=== PATIENT | female | born 2000 | race Caucasian/White ===

== ENCOUNTER 2024-04-20 07:46 | Inpatient (IN) ==
[2024-04-20] MEDS ORDERED: OXYTOCIN 30 UNITS/NSS 30 UNITS/500 ML BAG IV PRN (08:51)
[2024-04-20] MEDS ORDERED: LIDOCAINE 1% LOCAL 20 ML VIAL INFIL PRN (08:51)
[2024-04-20] MEDS: LACTATED RINGER'S 1,000 ML IV PRN (09:45)
[2024-04-20 09:50] LABS: Hematocrit (blood only) 31.3 % (37.0-47.0); Mean Corpuscular Hemoglobin 27.7 pg (25.0-34.0); Mean Corpuscular Hgb Conc 31.9 g/dL (32.0-36.0); Mean Corpuscular Volume 86.7 fL (80.0-100.0); Mean Platelet Volume 9.9 fL (9.4-12.4); Platelet Count 269 K/uL (130-400); RDW Coefficient of Variation 14.1 % (11.5-14.5); RDW Standard Deviation 44.8 fL (36.4-46.3); Red Blood Count 3.61 M/uL (4.20-5.40); White Blood Count 6.19 K/ul (4.8-10.8)
[2024-04-20] MEDS: OXYTOCIN 30 UNITS/NSS 30 UNITS/500 ML BAG IV PRN (09:52)
--- NOTE | 2024-04-20 10:07 | History & Physical Report ---
Date of Service April 20, 2024 Assessment & Plan (1) Supervision of normal first : (2) Anemia: Plan 23 yo G1 at 39 4/7 wga presents for iol due to increased bmi VSS Fetus cat 1 Labor - 35 cc solano placed, will start pit GBS neg epidural PRN Admission and Anticipated Discharge Date Admission Date: April 20, 2024 History of Present Illness Chief Complaint: induction Primary Care Provider: SHAMIKA PCP 23 yo G1 at 39 4/7 wga presents for iol fdue to BMI. 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 denies hx stis Allergies Allergy/AdvReac Type Severity Reaction Status Date / Time NSAIDS (Non-Steroidal Allergy Severe Anaphylaxis Verified 04/19/24 13:20 Anti-Inflamma Home Medications Medication Instructions Recorded Confirmed Type 21-iron fu-folic acid PO 10/15/23 04/19/24 History [ Complete] ondansetron 4 mg disintegrating 4 mg PO Q8H PRN nausea and 10/20/23 04/19/24 Rx tablet vomiting #14 tabs breast pump #1 ea 03/23/24 04/19/24 Rx Patient History Medical History (Updated 04/20/24 @ 10:14 by Adore Hickman MD) History of chicken pox Surgical History No history of previous surgery Family History Denies family history of Ovarian cancer Breast cancer Colorectal cancer Social History Smoking Status: Never smoker Do You Dip or Chew Tobacco: No; Tobacco Cessation Education Requested by Patient: No Hx Alcohol Use: No Hx Substance Use: No Preferred Language: Macedonian Communication Ability: Effective Support Teacher Required: No Beliefs That Will Affect Care: None marital status: marital status details: Luciano Potter ([phone]) [phone] Current Living Situation: Family Current Living Situation Comment: Lives with , no pets current occupational status: unemployed Other Information That Helps Us Care for You: No Feels Safe at Home: Yes Safety Concerns: Feels Safe At This Time Assistive Devices: None Physical Exam Genitourinary: OB Exam Abdomen: + vertex (confirmed by bsus) and + estimated weight (6-7) Manual OB Exam: + cervical dilation 1 cm, + cervical effacement 50% and + station -2 OB Exam Monitor Tracing: + external FHT monitor used, + external uterine monitor used and + category I Results & Data Vital Signs (Past 12 Hours) Vital Signs Temp Pulse Resp BP 04/20/24 08:14 98.2 F 109 H 16 127/67 04/20/24 07:54 109 H 127/67 Laboratory Results 09/18/[address] and gc via vaginal rna probe, RPR NR same date, HIV neg same date 12/06/22 pap smear WNL Hep B Surface Ag NR Hep C NR Rubella imm A+ Diagnostic Findings 03/15 EFW 31%, ant plac w/ marginal insertion Coding Level of Care Code None Diagnoses Supervision of normal first Z34.00 Anemia D64.9 CPT Codes Misx Procedure Codes - 82555 Placement of cervical dilator: 70366 Placement of cervical dilator ([id number])
[2024-04-20] MEDS ORDERED: BUTORPHANOL TARTRATE 2 MG/ML VIAL IV PRN (11:18)
[2024-04-20] MEDS ORDERED: ePHEDrine sulfate 50 MG/ML AMP IV PRN (11:55)
[2024-04-20] MEDS ORDERED: NALOXONE HCL 1 MG in SODIUM CHLORIDE 0.9% 1,000 ML IV PRN (11:55)
[2024-04-20] MEDS ORDERED: ROPIVACAINE 0.5% PF 5 MG/ML 20 ML VIAL EPI PRN (11:55)
[2024-04-20] MEDS ORDERED: LIDOCAINE 2% MPF LOCAL 5 ML VIAL EPI PRN (11:55)
[2024-04-20] MEDS ORDERED: NALBUPHINE HCL 5 MG in SYRINGE 0 ML IV PRN (11:55)
[2024-04-20] MEDS ORDERED: diphenhydrAMINE 50 MG/ML VIAL IV PRN (11:55)
[2024-04-20] MEDS ORDERED: NALOXONE HCL 0.4 MG/1 ML VIAL/CARP IV PRN (11:55)
[2024-04-20] MEDS ORDERED: SODIUM CHLORIDE 0.9% PF INJ 10 ML VIAL EPI PRN (11:55)
--- NOTE | 2024-04-20 11:57 | Anesthesiology Consultation ---
Date of Service April 20, 2024 Assessment & Plan (1) Encounter for pre-operative examination: Chart Review Chart Review: Patient NOT seen in Pre Admission Testing and Acceptable Risk for Labor Epidural Consults Requested none History Height/Weight Height: 5 ft 7 in Weight: 121.563 kg Allergies Allergy/AdvReac Type Severity Reaction Status Date / Time NSAIDS (Non-Steroidal Allergy Severe Anaphylaxis Verified 04/19/24 13:20 Anti-Inflamma Medications Home Medications Medication Instructions Recorded Confirmed Last Taken 21-iron fu-folic acid PO 10/15/23 04/19/24 04/19/24 14:00 [ Complete] ondansetron 4 mg disintegrating 4 mg PO Q8H PRN nausea and 10/20/23 04/20/24 Unknown tablet vomiting #14 tabs breast pump #1 ea 03/23/24 04/19/24 Unknown Active Medications Generic Name Dose Route Start Last Admin Trade Name Freq PRN Reason Stop Dose Admin Oxytocin 30 units in 500 mls @ 6 mls/hr 04/20/24 08:51 04/20/24 10:50 Pitocin 30 Units/Nss IV 04/22/24 08:50 0.36 units/hr .Q24H PRN 6 mls/hr Labor Induction/Augmentation Titration Protocol 0.36 UNITS/HR Lactated Ringer's 1,000 mls @ 125 mls/hr 04/20/24 08:51 04/20/24 11:55 Lr IV 04/22/24 08:50 999 mls/hr .Q8H PRN Administration L&D Protocol Protocol Past Medical History Medical History (Updated 04/20/24 @ 11:57 by Arcadio Kirkpatrick MD) Encounter for pre-operative examination History of chicken pox Past Family History Family History Denies family history of Ovarian cancer Breast cancer Colorectal cancer Past Surgical History Surgical History No history of previous surgery Social History Smoking Status: Never smoker Do You Dip or Chew Tobacco: No Hx Alcohol Use: No Hx Substance Use: No substance use type: does not use Physical Exam Vital Signs Last Vital Signs Temp 36.8 C 04/20/24 08:14 Pulse 99 H 04/20/24 12:15 Resp 16 08/06/24 08:14 BP 141/85 H 04/20/24 12:15 Pulse Ox 99 04/20/24 12:14 Testing Laboratory Results 04/20/24 09:31 Blood Type A Positive 04/20/24 09:31 Antibody Screen NEGATIVE 04/20/24 09:31
[2024-04-20] MEDS: fentANYL 2 MCG/ML BUPIVacaine 0.125%-NSS 100ML BAG ONE (12:20)
[2024-04-20] MEDS: fentaNYL citrate PF 100 MCG/2 ML VIAL ONE (12:53)
[2024-04-20] MEDS: BUPIVACAINE 0.25% PF 30 ML VIAL ONE (12:55)
[2024-04-20] MEDS: LIDOCAINE 2%/EPINEPHRINE 1:200,000 20 ML PF ONE (12:55)
--- NOTE | 2024-04-20 15:10 | Labor Progress Brief Note ---
Date of Service April 20, 2024 Subjective comfortable w/ epidural Assessment & Plan (1) Supervision of normal first : (2) Anemia: Plan 23 yo G1 at 39 4/7 wga presents for iol due to increased bmi VSS Fetus cat 1 Labor - pit at 18, now s/p arom as bulb just came out. Continue induction GBS neg epidural in place Admission and Anticipated Discharge Date Admission Date: April 20, 2024 Physical Exam Genitourinary: Manual OB Exam: + cervical dilation 3 cm, + cervical effacement 50%, + station -2 and + amniotic fluid clear OB Exam Monitor Tracing: + external FHT monitor used, + external uterine monitor used (q3) and + category I (135/mod/+accel/-decel) Results & Data Vital Signs (Past 12 Hours) Vital Signs Temp Pulse Resp BP Pulse Ox 04/20/24 15:04 91 H 100 04/20/24 15:02 107 H 139/84 04/20/24 14:59 99 H 100 04/20/24 14:54 94 H 100 04/20/24 14:49 92 H 100 04/20/24 14:45 93 H 131/63 04/20/24 14:44 79 100 04/20/24 14:39 102 H 100 04/20/24 14:34 98 H 98 04/20/24 14:31 99 H 146/71 H 04/20/24 14:29 90 100 04/20/24 14:24 84 97 04/20/24 14:19 95 H 98 04/20/24 14:16 86 128/68 04/20/24 14:14 92 H 100 04/20/24 14:09 90 98 04/20/24 14:04 80 97 04/20/24 13:59 84 99 04/20/24 13:58 82 135/66 04/20/24 13:54 100 H 100 04/20/24 13:49 89 100 04/20/24 13:48 100 H 135/79 04/20/24 13:44 96 H 99 04/20/24 13:40 89 137/76 04/20/24 13:39 91 H 100 04/20/24 13:34 84 100 04/20/24 13:29 99 H 99 04/20/24 13:28 114 H 122/57 L 04/20/24 13:24 89 99 04/20/24 13:19 87 99 04/20/24 13:18 82 133/72 04/20/24 13:14 87 100 04/20/24 13:09 102 H 99 04/20/24 13:08 87 134/72 04/20/24 13:04 94 H 99 04/20/24 12:59 99 04/20/24 12:59 90 04/20/24 12:59 100 H 142/83 H 04/20/24 12:54 88 99 04/20/24 12:49 99 H 99 04/20/24 12:48 83 142/77 H 04/20/24 12:46 98 H 141/80 H 04/20/24 12:44 102 H 99 04/20/24 12:39 101 H 100 04/20/24 12:37 90 147/82 H 04/20/24 12:35 101 H 150/84 H 04/20/24 12:34 87 99 04/20/24 12:33 100 H 149/93 H 04/20/24 12:31 90 141/84 H 04/20/24 12:30 97.9 F 99 H 18 155/87 H 04/20/24 12:29 100 H 98 04/20/24 12:28 102 H 156/92 H 04/20/24 12:25 97 H 140/83 04/20/24 12:24 93 H 99 04/20/24 12:23 93 H 148/87 H 04/20/24 12:21 96 H 145/84 H 04/20/24 12:19 93 H 146/85 H 99 04/20/24 12:17 111 H 143/85 H 04/20/24 12:15 99 H 141/85 H 04/20/24 12:14 96 H 143/91 H 99 04/20/24 12:11 101 H 142/89 H 04/20/24 12:10 100 H 151/95 H 04/20/24 12:09 95 H 100 04/20/24 12:04 110 H 96 04/20/24 11:59 92 H 100 04/20/24 11:54 96 H 99 04/20/24 11:49 83 134/82 98 04/20/24 11:48 85 151/90 H 04/20/24 08:14 98.2 F 109 H 16 127/67 04/20/24 07:54 109 H 127/ Coding Level of Care Code None Diagnoses Supervision of normal first Z34.00 Anemia D64.9
--- NOTE | 2024-04-20 18:32 | Labor Progress Brief Note ---
Date of Service April 20, 2024 Subjective comfortable w/ epidural Assessment & Plan (1) Supervision of normal first : (2) Anemia: Plan 23 yo G1 at 39 4/7 wga presents for iol due to increased bmi VSS Fetus cat 1 Labor - pit at 24, small progress noted. Continue induction GBS neg epidural in place Admission and Anticipated Discharge Date Admission Date: April 20, 2024 Physical Exam Genitourinary: Manual OB Exam: + cervical dilation 4 cm, + cervical effacement 50% and + station -2 OB Exam Monitor Tracing: + external FHT monitor used, + external uterine monitor used (q3) and + category I (130/mod/+accel/-decel) Results & Data Vital Signs (Past 12 Hours) Vital Signs Temp Pulse Resp BP Pulse Ox 04/20/24 18:25 83 98 04/20/24 18:20 82 98 04/20/24 18:16 101 H 134/72 04/20/24 18:15 110 H 100 04/20/24 18:10 91 H 100 04/20/24 18:05 101 H 100 04/20/24 18:00 100 04/20/24 18:00 108 H 04/20/24 18:00 105 H 133/97 04/20/24 17:55 96 H 97 04/20/24 17:50 84 98 04/20/24 17:45 81 99 04/20/24 17:44 99 H 127/62 04/20/24 17:40 84 99 04/20/24 17:35 81 98 04/20/24 17:30 92 H 133/81 100 04/20/24 17:25 86 96 04/20/24 17:20 82 98 04/20/24 17:15 78 138/81 98 04/20/24 17:10 87 98 04/20/24 17:05 79 99 04/20/24 17:00 89 100 04/20/24 16:59 92 H 142/84 H 04/20/24 16:55 101 H 100 04/20/24 16:50 84 100 04/20/24 16:45 85 132/75 100 04/20/24 16:40 77 99 04/20/24 16:36 89 91 04/20/24 16:35 94 H 100 04/20/24 16:30 84 99 04/20/24 16:29 81 129/62 04/20/24 16:25 83 100 04/20/24 16:20 89 99 04/20/24 16:15 99 04/20/24 16:15 99 H 04/20/24 16:15 70 124/60 04/20/24 16:09 74 99 04/20/24 16:04 83 99 04/20/24 15:59 76 99 04/20/24 15:54 101 H 100 04/20/24 15:49 85 98 04/20/24 15:45 78 128/66 04/20/24 15:44 81 100 04/20/24 15:39 83 98 04/20/24 15:34 82 100 04/20/24 15:30 76 128/67 04/20/24 15:29 82 100 04/20/24 15:24 86 100 04/20/24 15:19 92 H 100 04/20/24 15:15 86 124/69 04/20/24 15:14 88 100 04/20/24 15:09 110 H 100 04/20/24 15:04 91 H 100 04/20/24 15:02 107 H 139/84 04/20/24 14:59 99 H 100 04/20/24 14:54 94 H 100 04/20/24 14:49 92 H 100 04/20/24 14:45 93 H 131/63 04/20/24 14:44 79 100 04/20/24 14:39 102 H 100 04/20/24 14:34 98 H 98 04/20/24 14:31 99 H 146/71 H 04/20/24 14:29 90 100 04/20/24 14:24 84 97 04/20/24 14:19 95 H 98 04/20/24 14:16 86 128/68 04/20/24 14:14 92 H 100 04/20/24 14:09 90 98 04/20/24 14:04 80 97 04/20/24 14:01 16 04/20/24 14:01 98.2 F 16 04/20/24 13:59 84 99 04/20/24 13:58 82 135/66 04/20/24 13:54 100 H 100 04/20/24 13:49 89 100 04/20/24 13:48 100 H 135/79 04/20/24 13:44 96 H 99 04/20/24 13:40 89 137/76 04/20/24 13:39 91 H 100 04/20/24 13:34 84 100 04/20/24 13:29 99 H 99 04/20/24 13:28 114 H 122/57 L 04/20/24 13:24 89 99 04/20/24 13:19 87 99 04/20/24 13:18 82 133/72 04/20/24 13:14 87 100 04/20/24 13:09 102 H 99 04/20/24 13:08 87 134/72 04/20/24 13:04 94 H 99 04/20/24 12:59 99 04/20/24 12:59 90 04/20/24 12:59 100 H 142/83 H 04/20/24 12:54 88 99 04/20/24 12:49 99 H 99 04/20/24 12:48 83 142/77 H 04/20/24 12:46 98 H 141/80 H 04/20/24 12:44 102 H 99 04/20/24 12:39 101 H 100 04/20/24 12:37 90 147/82 H 04/20/24 12:35 101 H 150/84 H 04/20/24 12:34 87 99 04/20/24 12:33 100 H 149/93 H 04/20/24 12:31 90 141/84 H 04/20/24 12:30 97.9 F 99 H 18 155/87 H 04/20/24 12:29 100 H 98 04/20/24 12:28 102 H 156/92 H 04/20/24 12:25 97 H 140/83 04/20/24 12:24 93 H 99 04/20/24 12:23 93 H 148/87 H 04/20/24 12:21 96 H 145/84 H 04/20/24 12:19 93 H 146/85 H 99 04/20/24 12:17 111 H 143/85 H 04/20/24 12:15 99 H 141/85 H 04/20/24 12:14 96 H 143/91 H 99 04/20/24 12:11 101 H 142/89 H 04/20/24 12:10 100 H 151/95 H 04/20/24 12:09 95 H 100 04/20/24 12:04 110 H 96 08/06/24 11:59 92 H 100 04/20/24 11:54 96 H 99 04/20/24 11:49 83 134/82 98 04/20/24 11:48 85 151/90 H 04/20/24 08:14 98.2 F 109 H 16 127/67 04/20/24 07:54 109 H 127/67 Coding Level of Care Code None Diagnoses Supervision of normal first Z34.00 Anemia D64.9
[2024-04-20] MEDS ORDERED: NURSING L&D Epidural Breakthrough Pain Update ONE (18:39)
[2024-04-20] MEDS: fentANYL 2 MCG/ML BUPIVacaine 0.125%-NSS 100ML BAG EPI PRN (19:40)
--- NOTE | 2024-04-20 21:11 | Labor Progress Brief Note ---
Date of Service April 20, 2024 Subjective comfortable w/ epidural, feeling some pressure w/ ctx Assessment & Plan (1) Supervision of normal first : (2) Anemia: Plan 23 yo G1 at 39 4/7 wga presents for iol due to increased bmi VSS Fetus cat 1 Labor - pit at 24, continued progress w/ effacement and station. IUPC placed, will increase pit max to 30 GBS neg epidural in place Admission and Anticipated Discharge Date Admission Date: April 20, 2024 Physical Exam Genitourinary: Manual OB Exam: + cervical dilation 4 cm, + cervical effacement 60% and + station -1 OB Exam Monitor Tracing: + external FHT monitor used, + intra-uterine pressure catheter used (IUPC placed, q3, short gaps of q5-6) and + category I (135/mod/+accel/-decel) Results & Data Vital Signs (Past 12 Hours) Vital Signs Temp Pulse Resp BP Pulse Ox 04/20/24 21:05 107 H 98 04/20/24 21:03 96 H 135/75 04/20/24 21:01 100 H 160/82 H 04/20/24 21:00 95 H 100 04/20/24 20:55 102 H 97 04/20/24 20:50 103 H 98 04/20/24 20:45 90 134/75 98 04/20/24 20:40 99 H 99 04/20/24 20:35 86 98 04/20/24 20:30 107 H 99 04/20/24 20:29 90 146/88 H 04/20/24 20:25 88 97 04/20/24 20:20 97 H 99 04/20/24 20:15 83 144/87 H 99 04/20/24 20:10 93 H 100 04/20/24 20:05 96 H 100 04/20/24 20:00 107 H 100 04/20/24 19:59 97 H 139/83 04/20/24 19:55 107 H 100 04/20/24 19:50 105 H 99 04/20/24 19:45 107 H 99 04/20/24 19:40 92 H 100 04/20/24 19:35 103 H 100 04/20/24 19:31 93 H 129/75 04/20/24 19:30 99 H 99 04/20/24 19:25 92 H 97 04/20/24 19:20 89 98 04/20/24 19:15 99 04/20/24 19:15 87 04/20/24 19:15 89 119/75 04/20/24 19:10 93 H 99 04/20/24 19:07 18 04/20/24 19:07 98.1 F 18 04/20/24 19:05 85 99 04/20/24 19:00 92 H 126/65 99 04/20/24 18:55 99 H 99 04/20/24 18:50 94 H 99 04/20/24 18:45 86 99 04/20/24 18:44 84 130/77 04/20/24 18:40 88 97 04/20/24 18:35 99 H 100 04/20/24 18:30 87 99 04/20/24 18:25 83 98 04/20/24 18:20 82 98 04/20/24 18:16 101 H 134/72 04/20/24 18:15 110 H 100 04/20/24 18:10 91 H 100 04/20/24 18:05 101 H 100 04/20/24 18:00 100 04/20/24 18:00 108 H 04/20/24 18:00 105 H 133/97 04/20/24 17:55 96 H 97 04/20/24 17:50 84 98 04/20/24 17:45 81 99 04/20/24 17:44 99 H 127/62 04/20/24 17:40 84 99 04/20/24 17:35 81 98 04/20/24 17:30 92 H 133/81 100 04/20/24 17:25 86 96 04/20/24 17:20 82 98 04/20/24 17:15 78 138/81 98 04/20/24 17:10 87 98 04/20/24 17:05 79 99 04/20/24 17:00 89 100 04/20/24 16:59 92 H 142/84 H 04/20/24 16:55 101 H 100 04/20/24 16:50 84 100 04/20/24 16:45 85 132/75 100 04/20/24 16:40 77 99 04/20/24 16:36 89 91 04/20/24 16:35 94 H 100 04/20/24 16:30 84 99 04/20/24 16:29 81 129/62 04/20/24 16:25 83 100 04/20/24 16:20 89 99 04/20/24 16:15 99 04/20/24 16:15 99 H 04/20/24 16:15 70 124/60 04/20/24 16:09 74 99 04/20/24 16:04 83 99 04/20/24 15:59 76 99 04/20/24 15:54 101 H 100 04/20/24 15:49 85 98 04/20/24 15:45 78 128/66 04/20/24 15:44 81 100 04/20/24 15:39 83 98 04/20/24 15:34 82 100 04/20/24 15:30 76 128/67 04/20/24 15:29 82 100 04/20/24 15:24 86 100 04/20/24 15:19 92 H 100 04/20/24 15:15 86 124/69 04/20/24 15:14 88 100 04/20/24 15:09 110 H 100 04/20/24 15:04 91 H 100 04/20/24 15:02 107 H 139/84 04/20/24 14:59 99 H 100 04/20/24 14:54 94 H 100 04/20/24 14:49 92 H 100 04/20/24 14:45 93 H 131/63 04/20/24 14:44 79 100 04/20/24 14:39 102 H 100 04/20/24 14:34 98 H 98 04/20/24 14:31 99 H 146/71 H 04/20/24 14:29 90 100 04/20/24 14:24 84 97 04/20/24 14:19 95 H 98 04/20/24 14:16 86 128/68 04/20/24 14:14 92 H 100 04/20/24 14:09 90 98 04/20/24 14:04 80 97 04/20/24 14:01 16 04/20/24 14:01 98.2 F 16 04/20/24 13:59 84 99 04/20/24 13:58 82 135/66 04/20/24 13:54 100 H 100 04/20/24 13:49 89 100 04/20/24 13:48 100 H 135/79 04/20/24 13:44 96 H 99 04/20/24 13:40 89 137/76 04/20/24 13:39 91 H 100 04/20/24 13:34 84 100 04/20/24 13:29 99 H 99 04/20/24 13:28 114 H 122/57 L 04/20/24 13:24 89 99 04/20/24 13:19 87 99 04/20/24 13:18 82 133/72 04/20/24 13:14 87 100 04/20/24 13:09 102 H 99 04/20/24 13:08 87 134/72 04/20/24 13:04 94 H 99 04/20/24 12:59 99 04/20/24 12:59 90 04/20/24 12:59 100 H 142/83 H 04/20/24 12:54 88 99 04/20/24 12:49 99 H 99 04/20/24 12:48 83 142/77 H 04/20/24 12:46 98 H 141/80 H 04/20/24 12:44 102 H 99 04/20/24 12:39 101 H 100 04/20/24 12:37 90 147/82 H 04/20/24 12:35 101 H 150/84 H 04/20/24 12:34 87 99 04/20/24 12:33 100 H 149/93 H 04/20/24 12:31 90 141/84 H 04/20/24 12:30 97.9 F 99 H 18 155/87 H 04/20/24 12:29 100 H 98 04/20/24 12:28 102 H 156/92 H 04/20/24 12:25 97 H 140/83 04/20/24 12:24 93 H 99 04/20/24 12:23 93 H 148/87 H 04/20/24 12:21 96 H 145/84 H 04/20/24 12:19 93 H 146/85 H 99 04/20/24 12:17 111 H 143/85 H 04/20/24 12:15 99 H 141/85 H 04/20/24 12:14 96 H 143/91 H 99 04/20/24 12:11 101 H 142/89 H 04/20/24 12:10 100 H 151/95 H 04/20/24 12:09 95 H 100 04/20/24 12:04 110 H 96 04/20/24 11:59 92 H 100 04/20/24 11:54 96 H 99 04/20/24 11:49 83 134/82 98 04/20/24 11:48 85 151/90 H Coding Level of Care Code None Diagnoses Supervision of normal first Z34.00 Anemia D64.9
--- NOTE | 2024-04-21 04:35 | Labor Progress Brief Note ---
Date of Service April 21, 2024 Subjective comfortable w/ epidural, still some pressure w/ ctx Assessment & Plan (1) Supervision of normal first : (2) Anemia: Plan 23 yo G1 at 39 4/7 wga presents for iol due to increased bmi VSS Fetus cat 1 Labor - had pit break around midnight as ctx were adeq by mvus however irreg pattern w/ coupling and pit was 28 at the time. Since then, pit just increased to 12 and pattern better, mvus curetnly at 155 but increasing with each pit increase. I feel there is space, ? if asynclitic. Discussed this with pt, possibility of needing CS. She verbalized understanding, is desiring to continue for now GBS neg epidural in place Admission and Anticipated Discharge Date Admission Date: April 20, 2024 Physical Exam Genitourinary: Manual OB Exam: + cervical dilation (4-5), + cervical effacement 70% and + station -1 OB Exam Monitor Tracing: + external FHT monitor used, + external uterine monitor used (q3), + intra-uterine pressure catheter used (q3-4, MVUs just now 155) and + category I (135/mod/+accel/-decel) Results & Data Vital Signs (Past 12 Hours) Vital Signs Temp Pulse Resp BP Pulse Ox 04/21/24 04:25 112 H 99 04/21/24 04:20 108 H 100 04/21/24 04:17 104 H 143/82 H 04/21/24 04:15 109 H 100 04/21/24 04:10 103 H 99 04/21/24 04:05 117 H 99 04/21/24 04:00 107 H 98 04/21/24 03:55 109 H 99 04/21/24 03:50 112 H 100 04/21/24 03:45 110 H 95 04/21/24 03:40 108 H 99 04/21/24 03:35 100 H 99 04/21/24 03:30 99 H 99 04/21/24 03:25 100 H 99 04/21/24 03:20 105 H 99 04/21/24 03:18 102 H 131/73 04/21/24 03:15 101 H 99 04/21/24 03:10 98 H 99 04/21/24 03:05 98.2 F 98 H 99 04/21/24 03:00 101 H 99 04/21/24 02:55 101 H 98 04/21/24 02:50 114 H 100 04/21/24 02:48 113 H 134/83 04/21/24 02:45 117 H 96 04/21/24 02:40 106 H 99 04/21/24 02:35 108 H 98 04/21/24 02:30 106 H 98 04/21/24 02:25 112 H 99 04/21/24 02:20 109 H 99 04/21/24 02:17 106 H 135/75 04/21/24 02:15 104 H 99 04/21/24 02:10 108 H 98 04/21/24 02:05 110 H 100 04/21/24 02:00 109 H 99 04/21/24 01:55 111 H 100 04/21/24 01:50 118 H 99 04/21/24 01:47 111 H 147/84 H 04/21/24 01:46 116 H 139/94 04/21/24 01:45 119 H 100 04/21/24 01:40 115 H 100 04/21/24 01:36 20 04/21/24 01:36 98.6 F 20 04/21/24 01:35 115 H 97 04/21/24 01:30 105 H 98 04/21/24 01:29 100 H 138/65 04/21/24 01:25 106 H 97 04/21/24 01:20 101 H 98 04/21/24 01:15 100 H 137/65 98 04/21/24 01:10 101 H 97 04/21/24 01:05 103 H 98 04/21/24 01:01 104 H 139/72 04/21/24 01:00 107 H 98 04/21/24 00:55 105 H 100 04/21/24 00:50 104 H 99 04/21/24 00:45 108 H 99 04/21/24 00:44 104 H 136/65 04/21/24 00:40 114 H 97 04/21/24 00:35 107 H 100 04/21/24 00:30 100 04/21/24 00:30 101 H 04/21/24 00:30 105 H 147/73 H 04/21/24 00:25 127 H 100 04/21/24 00:20 95 H 100 04/21/24 00:15 99 H 135/75 98 08/07/24 00:10 97 H 99 04/21/24 00:05 107 H 100 04/21/24 00:01 103 H 141/70 H 04/21/24 00:00 111 H 99 04/20/24 23:55 105 H 99 04/20/24 23:50 101 H 98 04/20/24 23:45 98 04/20/24 23:45 95 H 04/20/24 23:45 90 127/70 04/20/24 23:40 97 H 98 04/20/24 23:37 101 H 92 04/20/24 23:35 100 H 98 04/20/24 23:30 90 134/75 98 04/20/24 23:25 100 H 99 04/20/24 23:22 18 04/20/24 23:22 18 04/20/24 23:20 92 H 98 04/20/24 23:15 96 H 97 04/20/24 23:14 103 H 136/79 04/20/24 23:10 96 H 98 04/20/24 23:05 94 H 98 04/20/24 23:02 18 04/20/24 23:02 98.2 F 18 04/20/24 23:01 99 H 134/78 04/20/24 23:00 97 H 99 04/20/24 22:55 94 H 98 04/20/24 22:50 98 H 99 04/20/24 22:45 102 H 134/76 99 04/20/24 22:40 100 H 99 04/20/24 22:35 98 H 16 98 04/20/24 22:30 99 04/20/24 22:30 102 H 04/20/24 22:30 97 H 133/77 04/20/24 22:25 102 H 100 04/20/24 22:20 120 H 100 04/20/24 22:15 99 04/20/24 22:15 97 H 04/20/24 22:15 93 H 141/79 H 04/20/24 22:10 100 H 100 04/20/24 22:05 99 H 16 98 04/20/24 22:00 99 H 98 04/20/24 21:59 92 H 131/77 04/20/24 21:55 98 H 98 04/20/24 21:50 103 H 97 04/20/24 21:45 90 138/79 98 04/20/24 21:40 103 H 99 04/20/24 21:35 110 H 99 04/20/24 21:33 18 04/20/24 21:33 18 04/20/24 21:30 105 H 100 04/20/24 21:25 120 H 100 04/20/24 21:20 91 H 99 04/20/24 21:15 90 97 04/20/24 21:14 90 129/71 04/20/24 21:10 119 H 99 04/20/24 21:05 107 H 98 04/20/24 21:03 96 H 135/75 04/20/24 21:01 100 H 160/82 H 04/20/24 21:00 98.2 F 95 H 18 100 04/20/24 20:55 102 H 97 04/20/24 20:50 103 H 98 04/20/24 20:45 90 134/75 98 04/20/24 20:40 99 H 99 04/20/24 20:35 86 98 04/20/24 20:30 107 H 99 04/20/24 20:29 90 146/88 H 04/20/24 20:25 88 97 04/20/24 20:20 97 H 99 04/20/24 20:15 83 144/87 H 99 04/20/24 20:10 93 H 100 04/20/24 20:05 96 H 100 04/20/24 20:00 107 H 100 04/20/24 19:59 97 H 139/83 04/20/24 19:55 107 H 100 04/20/24 19:50 105 H 99 04/20/24 19:45 107 H 99 04/20/24 19:40 92 H 100 04/20/24 19:35 103 H 100 04/20/24 19:31 93 H 129/75 04/20/24 19:30 99 H 99 04/20/24 19:25 92 H 97 04/20/24 19:20 89 98 04/20/24 19:15 99 04/20/24 19:15 87 04/20/24 19:15 89 119/75 04/20/24 19:10 93 H 99 04/20/24 19:07 18 04/20/24 19:07 98.1 F 18 04/20/24 19:05 85 99 08/06/24 19:00 92 H 126/65 99 04/20/24 18:55 99 H 99 04/20/24 18:50 94 H 99 04/20/24 18:45 86 99 04/20/24 18:44 84 130/77 04/20/24 18:40 88 97 04/20/24 18:35 99 H 100 04/20/24 18:30 87 99 04/20/24 18:25 83 98 04/20/24 18:20 82 98 04/20/24 18:16 101 H 134/72 04/20/24 18:15 110 H 100 04/20/24 18:10 91 H 100 04/20/24 18:05 101 H 100 04/20/24 18:00 100 04/20/24 18:00 108 H 04/20/24 18:00 105 H 133/97 04/20/24 17:55 96 H 97 04/20/24 17:50 84 98 04/20/24 17:45 81 99 04/20/24 17:44 99 H 127/62 04/20/24 17:40 84 99 04/20/24 17:35 81 98 04/20/24 17:30 92 H 133/81 100 04/20/24 17:25 86 96 04/20/24 17:20 82 98 04/20/24 17:15 78 138/81 98 04/20/24 17:10 87 98 04/20/24 17:05 79 99 04/20/24 17:00 89 100 04/20/24 16:59 92 H 142/84 H 04/20/24 16:55 101 H 100 04/20/24 16:50 84 100 04/20/24 16:45 85 132/75 100 04/20/24 16:40 77 99 04/20/24 16:36 89 91 04/20/24 16:35 94 H 100 04/20/24 16:30 84 99 04/20/24 16:29 81 129/62 Coding Level of Care Code None Diagnoses Supervision of normal first Z34.00 Anemia D64.9
--- NOTE | 2024-04-21 07:15 | Labor Progress Brief Note ---
Date of Service April 21, 2024 Subjective ctx slightly more painful Assessment & Plan (1) Supervision of normal first : (2) Anemia: Plan 23 yo G1 at 39 4/7 wga presents for iol due to increased bmi VSS Fetus cat 1 Labor - pit at 18, slow progress again noted but certainly progress. Discussed concern that while there is progress it has been slow and despite maxing out pitocin previously, possible need for . Baby remains reassuring. Discussed max pit amount is approaching again as well. Pt verbalized understanding and would like to continue, re-evaluate when max pit is reached GBS neg epidural in place Admission and Anticipated Discharge Date Admission Date: April 20, 2024 Physical Exam Genitourinary: Manual OB Exam: + cervical dilation 5 cm, + cervical effacement 80%, + station 0 and + amniotic fluid clear OB Exam Monitor Tracing: + external FHT monitor used, + intra-uterine pressure catheter used (q3) and + category I (135/mod/+accel/-decel) Results & Data Vital Signs (Past 12 Hours) Vital Signs Temp Pulse Resp BP Pulse Ox 04/21/24 07:05 112 H 100 04/21/24 07:00 113 H 99 04/21/24 06:55 107 H 98 04/21/24 06:50 104 H 98 04/21/24 06:47 107 H 131/83 04/21/24 06:45 104 H 98 04/21/24 06:40 105 H 98 04/21/24 06:35 104 H 98 04/21/24 06:30 104 H 98 04/21/24 06:25 101 H 98 04/21/24 06:20 102 H 99 04/21/24 06:17 109 H 139/87 04/21/24 06:15 112 H 99 04/21/24 06:10 102 H 98 04/21/24 06:05 109 H 99 04/21/24 06:00 115 H 98 04/21/24 05:55 98 H 97 04/21/24 05:50 100 H 96 04/21/24 05:47 92 H 123/67 04/21/24 05:45 98 H 97 04/21/24 05:40 95 H 97 04/21/24 05:35 99 H 96 04/21/24 05:30 96 H 96 04/21/24 05:25 104 H 98 04/21/24 05:20 104 H 97 04/21/24 05:18 97 H 133/83 04/21/24 05:15 102 H 99 04/21/24 05:10 98 H 97 04/21/24 05:05 105 H 97 04/21/24 05:04 20 04/21/24 05:04 98.2 F 20 04/21/24 05:00 111 H 98 04/21/24 04:55 107 H 98 04/21/24 04:50 107 H 98 04/21/24 04:48 106 H 140/88 04/21/24 04:45 103 H 99 04/21/24 04:40 116 H 98 04/21/24 04:35 103 H 99 04/21/24 04:30 106 H 99 04/21/24 04:25 112 H 99 04/21/24 04:20 108 H 100 04/21/24 04:17 104 H 143/82 H 04/21/24 04:15 109 H 100 04/21/24 04:10 103 H 99 04/21/24 04:05 117 H 99 04/21/24 04:00 107 H 98 04/21/24 03:55 109 H 99 04/21/24 03:50 112 H 100 04/21/24 03:45 110 H 95 04/21/24 03:40 108 H 99 04/21/24 03:35 100 H 99 04/21/24 03:30 99 H 99 04/21/24 03:25 100 H 99 04/21/24 03:20 105 H 99 04/21/24 03:18 102 H 131/73 04/21/24 03:15 101 H 99 04/21/24 03:10 98 H 99 04/21/24 03:05 98.2 F 98 H 99 04/21/24 03:00 101 H 99 04/21/24 02:55 101 H 98 04/21/24 02:50 114 H 100 04/21/24 02:48 113 H 134/83 04/21/24 02:45 117 H 96 04/21/24 02:40 106 H 99 04/21/24 02:35 108 H 98 04/21/24 02:30 106 H 98 04/21/24 02:25 112 H 99 04/21/24 02:20 109 H 99 04/21/24 02:17 106 H 135/75 04/21/24 02:15 104 H 99 04/21/24 02:10 108 H 98 04/21/24 02:05 110 H 100 04/21/24 02:00 109 H 99 04/21/24 01:55 111 H 100 04/21/24 01:50 118 H 99 04/21/24 01:47 111 H 147/84 H 04/21/24 01:46 116 H 139/94 04/21/24 01:45 119 H 100 04/21/24 01:40 115 H 100 04/21/24 01:36 20 04/21/24 01:36 98.6 F 20 04/21/24 01:35 115 H 97 04/21/24 01:30 105 H 98 04/21/24 01:29 100 H 138/65 04/21/24 01:25 106 H 97 04/21/24 01:20 101 H 98 04/21/24 01:15 100 H 137/65 98 04/21/24 01:10 101 H 97 04/21/24 01:05 103 H 98 04/21/24 01:01 104 H 139/72 04/21/24 01:00 107 H 98 04/21/24 00:55 105 H 100 04/21/24 00:50 104 H 99 04/21/24 00:45 108 H 99 04/21/24 00:44 104 H 136/65 04/21/24 00:40 114 H 97 04/21/24 00:35 107 H 100 04/21/24 00:30 100 04/21/24 00:30 101 H 04/21/24 00:30 105 H 147/73 H 04/21/24 00:25 127 H 100 04/21/24 00:20 95 H 100 04/21/24 00:15 99 H 135/75 98 04/21/24 00:10 97 H 99 04/21/24 00:05 107 H 100 04/21/24 00:01 103 H 141/70 H 04/21/24 00:00 111 H 99 04/20/24 23:55 105 H 99 04/20/24 23:50 101 H 98 04/20/24 23:45 98 04/20/24 23:45 95 H 04/20/24 23:45 90 127/70 04/20/24 23:40 97 H 98 04/20/24 23:37 101 H 92 04/20/24 23:35 100 H 98 04/20/24 23:30 90 134/75 98 04/20/24 23:25 100 H 99 04/20/24 23:22 18 04/20/24 23:22 18 04/20/24 23:20 92 H 98 04/20/24 23:15 96 H 97 04/20/24 23:14 103 H 136/79 04/20/24 23:10 96 H 98 04/20/24 23:05 94 H 98 04/20/24 23:02 18 04/20/24 23:02 98.2 F 18 04/20/24 23:01 99 H 134/78 04/20/24 23:00 97 H 99 04/20/24 22:55 94 H 98 04/20/24 22:50 98 H 99 04/20/24 22:45 102 H 134/76 99 04/20/24 22:40 100 H 99 04/20/24 22:35 98 H 16 98 04/20/24 22:30 99 04/20/24 22:30 102 H 04/20/24 22:30 97 H 133/77 04/20/24 22:25 102 H 100 04/20/24 22:20 120 H 100 04/20/24 22:15 99 04/20/24 22:15 97 H 04/20/24 22:15 93 H 141/79 H 04/20/24 22:10 100 H 100 04/20/24 22:05 99 H 16 98 04/20/24 22:00 99 H 98 04/20/24 21:59 92 H 131/77 04/20/24 21:55 98 H 98 04/20/24 21:50 103 H 97 04/20/24 21:45 90 138/79 98 04/20/24 21:40 103 H 99 04/20/24 21:35 110 H 99 04/20/24 21:33 18 04/20/24 21:33 18 04/20/24 21:30 105 H 100 04/20/24 21:25 120 H 100 04/20/24 21:20 91 H 99 04/20/24 21:15 90 97 04/20/24 21:14 90 129/71 04/20/24 21:10 119 H 99 04/20/24 21:05 107 H 98 04/20/24 21:03 96 H 135/75 04/20/24 21:01 100 H 160/82 H 04/20/24 21:00 98.2 F 95 H 18 100 04/20/24 20:55 102 H 97 04/20/24 20:50 103 H 98 04/20/24 20:45 90 134/75 98 04/20/24 20:40 99 H 99 04/20/24 20:35 86 98 04/20/24 20:30 107 H 99 04/20/24 20:29 90 146/88 H 04/20/24 20:25 88 97 04/20/24 20:20 97 H 99 04/20/24 20:15 83 144/87 H 99 04/20/24 20:10 93 H 100 04/20/24 20:05 96 H 100 04/20/24 20:00 107 H 100 04/20/24 19:59 97 H 139/83 04/20/24 19:55 107 H 100 04/20/24 19:50 105 H 99 04/20/24 19:45 107 H 99 04/20/24 19:40 92 H 100 04/20/24 19:35 103 H 100 04/20/24 19:31 93 H 129/75 04/20/24 19:30 99 H 99 04/20/24 19:25 92 H 97 04/20/24 19:20 89 98 04/20/24 19:15 99 04/20/24 19:15 87 04/20/24 19:15 89 119/75 Coding Level of Care Code None Diagnoses Supervision of normal first Z34.00 Anemia D64.9
[2024-04-21] MEDS: fentaNYL citrate PF 100 MCG/2 ML VIAL EPI PRN (08:00)
[2024-04-21] MEDS: SODIUM CHLORIDE 0.9% PF INJ 10 ML VIAL EPI STA (08:01)
[2024-04-21] MEDS: BUPIVACAINE 0.25% PF 30 ML VIAL EPI PRN (08:01)
--- NOTE | 2024-04-21 08:04 | Anesthesia Procedure Note ---
Date of Service April 21, 2024 Anesthesia Epidural Re-Dose Vital Signs Temp Pulse Resp BP Pulse Ox 36.9 C 111 H 18 144/97 H 99 04/21/24 07:18 04/21/24 07:58 04/21/24 07:18 04/21/24 07:58 04/21/24 07:55 Notes Pain Intensity: 6 Dilatation (cm): 5.0 Effacement (%): 80 Heart Rate: 130 After Epidural Re-Dose Mental Status: alert / awake / arousable Pain: see Notes below Airway Patency, RR, SpO2: stable & adequate BP & HR: stable & adequate Additional Notes: @ 0758,Pt.epidural was bolused w/ 12 ml 0.17% bupivacaine + 100 mcgs Fentanyl using incremental asp. and injection w/o incident.
--- NOTE | 2024-04-21 08:57 | Labor Progress Brief Note ---
Date of Service April 21, 2024 Patient has been induced for 24 hours with Pitocin and cervical Duarte her progress has been slow I did do signout with Dr. Hickman in the morning and will review the chart carefully The patient has made slow progress at several points and has been offered a and the patient would like to try as long as she could on presentation at approximately 8:45 in the morning call signed over with the patient she had a prolonged series of D cells post contraction Pitocin was stopped at this time I checked the patient and I assessed her as 4.5 cm which is similar to Dr. Hickman's check it looks like she was 4.5 cm at approximately midnight as well there is not been any substantial progress from that check it seems in 9 hours at this stage even without Duarte adequate contractions she has met more than the 6-hour threshold so I did offer again we reviewed that we could continue to induce but we would have to restart the Pitocin we discussed risks of infection bleeding full informed consent she wishes to proceed with along with her partner risk discussed Repeat section. The patient was counseled to the nature of the procedure including alternatives such as labor. Risks were discussed including bleeding infection injury to bowel bladder ureter vessels and even baby. The risks of internal organ injury were discussed as being higher with prior sections. Deep Vein Thrombosis, pulmonary embolus and breakdown of the incision discussed. Deep vein thrombosis pulmonary embolus hernia and failure of the incision to heal were discussed Patient verbalized understanding of this and was given ample time to ask questions Assessment & Plan Admission and Anticipated Discharge Date Admission Date: April 20, 2024 Results & Data Vital Signs (Past 12 Hours) Vital Signs Temp Pulse Resp BP Pulse Ox 04/21/24 08:50 100 04/21/24 08:50 119 H 04/21/24 08:50 120 H 131/81 04/21/24 08:45 119 H 100 04/21/24 08:40 129 H 97 04/21/24 08:35 95 H 124/74 99 04/21/24 08:30 129 H 76 L 04/21/24 08:25 104 H 99 04/21/24 08:21 102 H 142/80 H 04/21/24 08:20 105 H 100 04/21/24 08:15 114 H 99 04/21/24 08:10 104 H 99 04/21/24 08:05 110 H 100 04/21/24 08:04 103 H 16 145/92 H 04/21/24 08:02 112 H 140/90 04/21/24 08:00 114 H 132/94 100 04/21/24 07:58 111 H 144/97 H 04/21/24 07:55 108 H 99 04/21/24 07:50 109 H 100 04/21/24 07:47 105 H 143/90 H 04/21/24 07:45 108 H 100 04/21/24 07:40 111 H 100 04/21/24 07:35 108 H 98 04/21/24 07:30 117 H 100 04/21/24 07:25 111 H 99 04/21/24 07:20 111 H 99 04/21/24 07:18 98.4 F 105 H 18 143/95 H 04/21/24 07:15 111 H 100 04/21/24 07:10 109 H 100 04/21/24 07:05 112 H 100 04/21/24 07:00 113 H 99 04/21/24 06:55 107 H 98 04/21/24 06:50 104 H 98 04/21/24 06:47 107 H 131/83 04/21/24 06:45 104 H 98 04/21/24 06:40 105 H 98 04/21/24 06:35 104 H 98 04/21/24 06:30 104 H 98 04/21/24 06:25 101 H 98 04/21/24 06:20 102 H 99 04/21/24 06:17 109 H 139/87 04/21/24 06:15 112 H 99 04/21/24 06:10 102 H 98 04/21/24 06:05 109 H 99 04/21/24 06:00 115 H 98 04/21/24 05:55 98 H 97 04/21/24 05:50 100 H 96 04/21/24 05:47 92 H 123/67 04/21/24 05:45 98 H 97 04/21/24 05:40 95 H 97 04/21/24 05:35 99 H 96 04/21/24 05:30 96 H 96 04/21/24 05:25 104 H 98 04/21/24 05:20 104 H 97 04/21/24 05:18 97 H 133/83 04/21/24 05:15 102 H 99 04/21/24 05:10 98 H 97 04/21/24 05:05 105 H 97 04/21/24 05:04 20 04/21/24 05:04 98.2 F 20 04/21/24 05:00 111 H 98 04/21/24 04:55 107 H 98 04/21/24 04:50 107 H 98 04/21/24 04:48 106 H 140/88 04/21/24 04:45 103 H 99 04/21/24 04:40 116 H 98 04/21/24 04:35 103 H 99 04/21/24 04:30 106 H 99 04/21/24 04:25 112 H 99 04/21/24 04:20 108 H 100 04/21/24 04:17 104 H 143/82 H 04/21/24 04:15 109 H 100 04/21/24 04:10 103 H 99 04/21/24 04:05 117 H 99 04/21/24 04:00 107 H 98 04/21/24 03:55 109 H 99 04/21/24 03:50 112 H 100 04/21/24 03:45 110 H 95 04/21/24 03:40 108 H 99 04/21/24 03:35 100 H 99 04/21/24 03:30 99 H 99 04/21/24 03:25 100 H 99 04/21/24 03:20 105 H 99 04/21/24 03:18 102 H 131/73 04/21/24 03:15 101 H 99 04/21/24 03:10 98 H 99 04/21/24 03:05 98.2 F 98 H 99 04/21/24 03:00 101 H 99 04/21/24 02:55 101 H 98 04/21/24 02:50 114 H 100 04/21/24 02:48 113 H 134/83 04/21/24 02:45 117 H 96 04/21/24 02:40 106 H 99 04/21/24 02:35 108 H 98 04/21/24 02:30 106 H 98 04/21/24 02:25 112 H 99 04/21/24 02:20 109 H 99 04/21/24 02:17 106 H 135/75 04/21/24 02:15 104 H 99 04/21/24 02:10 108 H 98 04/21/24 02:05 110 H 100 04/21/24 02:00 109 H 99 04/21/24 01:55 111 H 100 04/21/24 01:50 118 H 99 04/21/24 01:47 111 H 147/84 H 04/21/24 01:46 116 H 139/94 04/21/24 01:45 119 H 100 04/21/24 01:40 115 H 100 04/21/24 01:36 20 04/21/24 01:36 98.6 F 20 04/21/24 01:35 115 H 97 04/21/24 01:30 105 H 98 04/21/24 01:29 100 H 138/65 04/21/24 01:25 106 H 97 04/21/24 01:20 101 H 98 04/21/24 01:15 100 H 137/65 98 04/21/24 01:10 101 H 97 04/21/24 01:05 103 H 98 04/21/24 01:01 104 H 139/72 04/21/24 01:00 107 H 98 04/21/24 00:55 105 H 100 04/21/24 00:50 104 H 99 04/21/24 00:45 108 H 99 04/21/24 00:44 104 H 136/65 04/21/24 00:40 114 H 97 04/21/24 00:35 107 H 100 04/21/24 00:30 100 04/21/24 00:30 101 H 04/21/24 00:30 105 H 147/73 H 04/21/24 00:25 127 H 100 04/21/24 00:20 95 H 100 04/21/24 00:15 99 H 135/75 98 04/21/24 00:10 97 H 99 04/21/24 00:05 107 H 100 04/21/24 00:01 103 H 141/70 H 04/21/24 00:00 111 H 99 04/20/24 23:55 105 H 99 04/20/24 23:50 101 H 98 04/20/24 23:45 98 04/20/24 23:45 95 H 04/20/24 23:45 90 127/70 04/20/24 23:40 97 H 98 04/20/24 23:37 101 H 92 04/20/24 23:35 100 H 98 04/20/24 23:30 90 134/75 98 04/20/24 23:25 100 H 99 04/20/24 23:22 18 04/20/24 23:22 18 04/20/24 23:20 92 H 98 04/20/24 23:15 96 H 97 04/20/24 23:14 103 H 136/79 04/20/24 23:10 96 H 98 04/20/24 23:05 94 H 98 04/20/24 23:02 18 04/20/24 23:02 98.2 F 18 04/20/24 23:01 99 H 134/78 04/20/24 23:00 97 H 99 04/20/24 22:55 94 H 98 04/20/24 22:50 98 H 99 04/20/24 22:45 102 H 134/76 99 04/20/24 22:40 100 H 99 04/20/24 22:35 98 H 16 98 04/20/24 22:30 99 04/20/24 22:30 102 H 04/20/24 22:30 97 H 133/77 04/20/24 22:25 102 H 100 04/20/24 22:20 120 H 100 04/20/24 22:15 99 04/20/24 22:15 97 H 04/20/24 22:15 93 H 141/79 H 04/20/24 22:10 100 H 100 04/20/24 22:05 99 H 16 98 04/20/24 22:00 99 H 98 04/20/24 21:59 92 H 131/77 04/20/24 21:55 98 H 98 04/20/24 21:50 103 H 97 04/20/24 21:45 90 138/79 98 04/20/24 21:40 103 H 99 04/20/24 21:35 110 H 99 04/20/24 21:33 18 04/20/24 21:33 18 04/20/24 21:30 105 H 100 04/20/24 21:25 120 H 100 04/20/24 21:20 91 H 99 04/20/24 21:15 90 97 04/20/24 21:14 90 129/71 04/20/24 21:10 119 H 99 04/20/24 21:05 107 H 98 04/20/24 21:03 96 H 135/75 04/20/24 21:01 100 H 160/82 H 04/20/24 21:00 98.2 F 95 H 18 100 Coding Level of Care Code None
[2024-04-21] MEDS: ceFAZolin 3000MG 3,000 MG/72.5 ML BAG IV SCH (09:43)
[2024-04-21] MEDS: AZITHROMYCIN 500 MG in DEXTROSE 5% 250 ML IV SCH (10:18)
[2024-04-21] MEDS: ONDANSETRON INJ 2 MG/ML 2 ML VIAL IV STA (10:46)
[2024-04-21] MEDS ORDERED: fentaNYL citrate PF 100 MCG/2 ML VIAL ONE (10:53)
[2024-04-21] MEDS: CITRIC ACID/SODIUM CITRATE 15 ML UDC ONE (10:59)
[2024-04-21] MEDS ORDERED: OXYTOCIN 10 UNITS/ML VIAL ONE (11:52)
[2024-04-21] MEDS ORDERED: PHENYLEPHRINE 100MCG/ML 10ML SYR IV ONE (11:54)
[2024-04-21] MEDS: CARBOPROST TROMETHAMINE 250 MCG/ML AMPUL IM ONE (11:55)
[2024-04-21] MEDS ORDERED: MoRPHine SULFATE PF 1 MG/ML 10 ML AMP/VIAL ONE (11:55)
--- NOTE | 2024-04-21 12:15 | Operative Report ---
PG Post Operative Report Pre & Post Diagnosis Operation Date: 04/21/24 09:10 Pre-Op Diagnosis: Intrauterinepregnancy, failed induction, failure to progress Post-Op Diagnosis: same I identified the patient and participated in the time-out.: Yes Procedure Operation Date: 04/21/24 09:10 Actual Procedures p Section in LD for living male child at 1144(Bilateral) - Lucius Hollis MD, FACOG Surgeon Lucius Hollis MD, FACOG Physician resident Estimated Blood Loss 621 (QBL) Findings Consistent with Post-Op Diagnosis Specimens cord blood, gases Description of Procedure Regional anesthetic had been given by anesthesia patient was prepped and draped with a leftward tilt preoperative antibiotics had been given in appropriate timing by anesthesiology. Once the prep was allowed to fully dry timeout was performed. Pickups with teeth were used to test the incision area was found to be adequate for incision as the patient did not feel sharp pain. Scalpel was used to make a Pfannenstiel incision on the lower abdomen. We then cut through the subcutaneous fat down to the level of the anterior rectus sheath fascia this was cut in the midline and then extended laterally with the curved Mitchell scissors. At this stage we then placed 2 Yuval clamps on the anterior aspect of the fascia. Using the curved Mitchell's we are able to dissect the fascia superiorly away from the rectus muscles. Care was taken to maintain hemostasis. Yuval clamps were then placed to the inferior aspect of the anterior sheath of the fascia. Fascia was then dissected away from the rectus muscles inferiorly towards the pubic bone. A Yuval was then placed in the midline both inferiorly and superiorly. This was to allow exposure by retraction rectus muscles were in the midline with were then able to cut through the peritoneum and then enter the peritoneal cavity. Opening was enlarged to allow exposure of the peritoneal cavity both superiorly and inferiorly. Once adequate space was obtained a bladder retractor was placed to expose the lower segment Metzenbaums were used to dissect the bladder flap inferiorly away from the uterus. This was done sharply bladder retractor was then repositioned to expose the lower segment of the uterus Fresh scalpel was used to make a low transverse incision on the uterus. Uterus was then entered bluntly with the operators finger, membranes ruptured and the opening was enlarged using the operators fingers bluntly pulling superiorly and inferiorly to allow exposure. Baby was delivered by first flexion of the head elevation of the head out of the pelvis and then pressure by the assistant gm of content & delivery on the maternal abdomen. Baby's head was then delivered mouth and then nares were suctioned and then using gentle traction the baby was fully delivered. Live vigorous . Fluid was clear cord clamped and cut cord gases obtained cord blood obtained baby handed to pediatrics. Placenta removed was removed with traction we ensure the entire placenta was removed with a moist lap sponge into the uterus Uterus was then exteriorized. IV Pitocin had been started by anesthesia tone improved there were no extensions the uterus was then closed using 0 Monocryl in a 2 layer closure the first layer closed in a running locked fashion from left to right and then a second closure from left to right in a running nonlocked fashion. At this stage hemostasis was excellent. Uterus was placed back in the peritoneal cavity with suction irrigation out and inspection of the uterus at this stage revealed excellent hemostasis Note there was some uterine atony I did inject Hemabate directly into the uterine muscle care was taken to avoid intravascular injection and this improved tone substantially Retractors were removed urine color was clear at this stage of the case we inspected the rectus muscles they were hemostatic fascia was closed with 0 Vicryl subcutaneous fat was irrigated and closed with 3-0 Vicryl skin closed with 4-0 subcuticular Monocryl I attest to the content of the Intraoperative Record and any orders documented therein. Any exceptions are noted below. OB Procedure Charges 47176
[2024-04-21 12:19] LABS: Base Excess Cord Arterial Bld -3.8 mEq/L (-9-1.8); Base Excess Cord Venous Blood -4.4 mEq/L (-7.7-1.9); CO2 Cord Arterial Blood 57 mmHg (39.1-73.5); Cord Venous Blood HCO3 23 mmol/L (18.4-26.8); Cord Venous Blood PCO2 48 mmHg (30.4-57.2); Cord Venous Blood PO2 < 20 mmHg (14.1-43.3); Cord Venous Blood pH 7.28 (7.20-7.44); HCO3 Cord Arterial Blood 24 mmol/L (19.7-28.5); O2 Saturation Cord Venous Bld < 60.0 % (<68); Oxygen Sat Cord Arterial Blood < 60.0 % (<60); PO2 Cord Arterial Blood < 20 mmHg (4.1-31.7); pH Cord Arterial Blood 7.24 (7.1-7.38)
[2024-04-21] MEDS ORDERED: ONDANSETRON INJ 2 MG/ML 2 ML VIAL IV PRN ×2 (12:24→12:27)
[2024-04-21] MEDS ORDERED: PROMETHAZINE 12.5 MG/50.5 ML BAG IV PRN (12:24)
[2024-04-21] MEDS ORDERED: HYDROCORTISONE ACETATE 25 MG SUPP PR PRN (12:24)
[2024-04-21] MEDS ORDERED: IBUPROFEN 600 MG TAB PO SCH (12:24)
[2024-04-21] MEDS ORDERED: HYDROmorphone INJ 0.5 MG/0.5 ML SYR IV PRN (12:24)
[2024-04-21] MEDS ORDERED: BENZOCAINE 20% SPRY 85 APPLN/85 GM CAN EXT PRN (12:24)
[2024-04-21] MEDS ORDERED: SENNA 8.6 MG TAB PO PRN (12:24)
[2024-04-21] MEDS ORDERED: LACTATED RINGER'S 1,000 ML IV SCH (12:24)
[2024-04-21] MEDS ORDERED: CALCIUM CARBONATE 500 MG CHEWABLE TAB PO PRN (12:24)
[2024-04-21] MEDS ORDERED: diphenhydrAMINE 50 MG/ML VIAL IV PRN ×2 (12:24→12:27)
[2024-04-21] MEDS ORDERED: MAGNESIUM HYDROXIDE SUSP 30 ML UDC PO PRN (12:24)
[2024-04-21] MEDS ORDERED: ePHEDrine sulfate 50 MG/ML AMP IV PRN (12:27)
[2024-04-21] MEDS ORDERED: NALOXONE HCL 1 MG in SODIUM CHLORIDE 0.9% 1,000 ML IV PRN (12:27)
[2024-04-21] MEDS ORDERED: LACTATED RINGER'S 500 ML IV PRN (12:27)
[2024-04-21] MEDS ORDERED: NALOXONE HCL 0.08 MG in SYRINGE 1.8 ML IV PRN (12:27)
[2024-04-21] MEDS ORDERED: MoRPHine SULFATE PF 1 MG/ML 10 ML AMP/VIAL INT SPINAL ONE (12:27)
[2024-04-21] MEDS ORDERED: PROMETHAZINE 6.25 MG/50.25 ML BAG IV PRN (12:27)
[2024-04-21] MEDS ORDERED: NALOXONE HCL 0.4 MG/1 ML VIAL/CARP IV PRN (12:27)
[2024-04-21] MEDS ORDERED: NALBUPHINE HCL 5 MG in SYRINGE 0 ML IV PRN (12:27)
[2024-04-21] MEDS ORDERED: DC INTRASPINAL MORPHINE SCH (12:30)
[2024-04-21] MEDS: ACETAMINOPHEN 325 MG TAB PO SCH ×2 (12:30→21:34)
[2024-04-21] MEDS ORDERED: SODIUM CHLORIDE 0.9% 1,000 ML IV SCH (12:30)
[2024-04-21] MEDS ORDERED: NO NARCOTICS OR SEDATIVES SCH (12:30)
--- NOTE | 2024-04-21 12:33 | Anesthesia Procedure Note ---
Date of Service April 21, 2024 Anesthesia Post Epidural Note Vital Signs Vital Signs: Temp Pulse Resp BP Pulse Ox 37.0 C 116 H 18 106/56 L 94 04/21/24 10:59 04/21/24 12:30 04/21/24 10:59 04/21/24 12:24 04/21/24 12:30 Pain Intensity Bilateral Abdomen: Pain Intensity: 4 Notes Mental Status: alert / awake / arousable Nausea / Vomiting: adequately controlled Pain: adequately controlled Airway Patency, RR, SpO2: stable & adequate BP & HR: stable & adequate Hydration State: stable & adequate Neuraxial Anesthesia: was administered and sensory block is resolving Anesthetic Complications: no major complications apparent Epidural: Removed without complications and With tip intact
[2024-04-21] MEDS: CITRIC ACID/SODIUM CITRATE 15 ML UDC PO ONE (12:50)
[2024-04-21] MEDS: ePHEDrine sulfate 50 MG/ML AMP ONE (12:58)
[2024-04-21] MEDS: SODIUM CHLORIDE 0.9% PF INJ 10 ML VIAL ONE (12:58)
[2024-04-21] MEDS: SIMETHICONE 80 MG CHEW PO SCH (13:00)
[2024-04-21] MEDS: OXYTOCIN 20 UNITS/LR 1,002 ML IV SCH (13:23)
[2024-04-21] MEDS: ACETAMINOPHEN 1,000 MG/100 ML VIAL IV STA (13:53)
[2024-04-21] MEDS: BUPIVACAINE 0.25% PF 30 ML VIAL EPI STA (16:21)
[2024-04-21] MEDS: LIDOCAINE 2%/EPINEPHRINE 1:200,000 20 ML PF EPI STA (16:21)
[2024-04-21] MEDS: fentaNYL citrate PF 100 MCG/2 ML VIAL EPI STA (16:21)
[2024-04-21] MEDS: HYDROmorphone INJ 0.5 MG/0.5 ML SYR IV PRN (17:30)
[2024-04-21] MEDS ORDERED: Nursing to Pharmacy Communication SCH (19:45)
[2024-04-21] MEDS: DOCUSATE SODIUM 100 MG CAP PO SCH (21:35)
[2024-04-22] MEDS ORDERED: Nursing to Pharmacy Communication SCH (05:00)
[2024-04-22] MEDS: diphenhydrAMINE Capsule 25 MG CAP PO PRN (05:19)
[2024-04-22 06:22] LABS: Basophils # (auto) 0.03 K/uL (0.00-0.20); Basophils % (auto) 0.2 %; Eosinophils # (auto) 0.04 K/uL (0.00-0.50); Eosinophils % (auto) 0.3 %; Hematocrit (blood only) 24.2 % (37.0-47.0); Hemoglobin 7.8 g/dl (12.0-16.0); Immature Granulocytes # (auto) 0.08 K/uL (0.01-0.20); Immature Granulocytes % (auto) 0.6 %; Lymphocytes # (auto) 2.11 K/uL (1.20-3.40); Lymphocytes % (auto) 14.9 %; Mean Corpuscular Hemoglobin 27.8 pg (25.0-34.0); Mean Corpuscular Hgb Conc 32.2 g/dL (32.0-36.0); Mean Corpuscular Volume 86.1 fL (80.0-100.0); Mean Platelet Volume 10.1 fL (9.4-12.4); Monocytes # (auto) 1.02 K/uL (0.11-0.59); Monocytes % (auto) 7.2 %; Neutrophils # (auto) 10.89 K/uL (1.40-6.50); Neutrophils % (auto) 76.8 %; Platelet Count 204 K/uL (130-400); RDW Coefficient of Variation 14.1 % (11.5-14.5); RDW Standard Deviation 44.8 fL (36.4-46.3); Red Blood Count 2.81 M/uL (4.20-5.40); White Blood Count 14.17 K/ul (4.8-10.8)
[2024-04-22 06:47] LABS: Polychromasia 1+
--- NOTE | 2024-04-22 07:42 | Obstetrical Progress Note ---
Date of Service <Donell Velez MD - Last Filed: 04/22/24 07:47> April 22, 2024 Assessment & Plan <Donell Velez MD - Last Filed: 04/22/24 07:47> (1) Encounter for assessment: visit type: exam and care immediately after delivery Qualified Code(s): Z39.0 - Encounter for care and examination of mother immediately after delivery Plan Pt is a 23 y/o female who is now PPD#1 following LTCS at 39 weeks PPD 1: stable, routine management -Patient is voiding and ambulating on their own power -Pain is well controlled on as needed analgesia -Tolerating regular diet without nausea or vomiting c/o generalized itching that started lastnight but denies any SoB, lip or tongue swelling or wheeze -Planned to Breast feed * continue antihistamines for itching. * encouraged to ambulate and hydrate well. * Reassess d/c readiness tomorrow * 6 weeks OB outpatient follow-up <Lucius Hollis MD, FACOG - Last Filed: 04/23/24 14:01> (1) Encounter for assessment: Subjective <Donell Velez MD - Last Filed: 04/22/24 07:47> Ambulation: ambulating normally Voiding: no voiding problems Diet Tolerance:: regular diet Lochia:: Moderate Feeding Type:: breast feeding Pt is a 23 y/o female who is now PPD#1 following LTCS at 39 weeks. Reports feeling well overall this morning. minimal abdominal cramping and 4-5/10 pain, well managed on analgesics and also c/o generalized itching that started lastnight but denies any SoB, lip or tongue swelling or wheeze. Voiding ok. Tolerating meals and able to ambulate some. passing gas but no bowel movements yet. Some persistent lochia with overall improvement as of this morning. Breast feeding. Review of Systems -Denies fever or chills -Denies dyspnea, chest pain, or palpitations -Denies breast pain -Denies dysuria -Denies headache or changes in vision Physical Exam <Donell Velez MD - Last Filed: 04/22/24 07:47> General: Alert and oriented. No acute distress Cardiac: Regular rate and rhythm, no murmurs appreciated Respiratory: Lungs clear to auscultation bilaterally, No increased work of breathing Abdominal: Soft, non-tender, non-distended. Bowel sounds present. Uterus: Uterine fundus firm, palpable below umbilicus, TIFFANIE dressing intact,vacuum suction working well. no signs of bleed or local infection. Extremities: No lower extremity edema, calves non-tender bilaterally Results & Data <Donell Velez MD - Last Filed: 04/22/24 07:47> Vital Signs (Past 12 Hours) Vital Signs Temp Pulse Resp BP Pulse Ox O2 Del Method 04/22/24 06:24 18 92 04/22/24 05:44 18 95 04/22/24 04:00 18 95 04/22/24 03:30 37.2 C 128 H 18 119/78 94 Room Air 04/22/24 03:20 18 94 04/22/24 02:00 20 97 04/22/24 01:00 18 96 04/22/24 00:35 36.9 C 118 H 20 107/67 95 Room Air 04/22/24 00:10 18 96 04/21/24 23:00 18 97 04/21/24 22:15 18 96 04/21/24 21:00 18 98 04/21/24 20:00 17 97 04/21/24 19:50 36.8 C 124 H 16 128/81 99 Room Air Supervising Physician <Lucius Hollis MD, FACOG - Last Filed: 04/23/24 14:01> Co-Signing Physician Notes Resident Physician Supervision Note: I was present with [Name of resident] during the history and exam. I discussed the case with the resident and agree with the findings and plan as documented in the note. Any exceptions or clarifications are listed here: [None] Documented By: Lucius Hollis MD, FACOG Resident Activity Tracking <Donell Velez MD - Last Filed: 04/22/24 07:47> Resident Involvement: Resident Care Provided Care Provided: OB Delivery
[2024-04-22] MEDS: FERROUS SULFATE 325 MG TAB PO SCH (08:18)
[2024-04-22] MEDS: PRENATAL VITAMIN 1 TAB PO SCH (08:18)
[2024-04-22] MEDS: oxyCODONE HCL IR 5 MG TAB (IMMEDIATE RELEASE) PO PRN (08:18)
[2024-04-22] MEDS: ONDANSETRON INJ 2 MG/ML 2 ML VIAL ONE (11:17)
[2024-04-22] MEDS: DIPHTHER/TETAN/PERTUS Vaccine (Tdap, Adol/Adult) 0.5mL IM ONE (11:18)
[2024-04-22 14:29] LABS: Hemoglobin 8.3 g/dl (12.0-16.0)
[2024-04-22] MEDS: bisacodyL 5 MG TABEC PO SCH (19:57)
--- NOTE | 2024-04-22 23:18 | Communication Note ---
Date of Service: April 22, 2024 Called by RN to inform me patient remains tachycardic, but with new sensation of palpitations / "heavy" heartbeats, and decrease in O2 saturation to 94% on RA. S/O: Patient visited in her room, where she is infant on L side and has FOB at the bedside. She denies CP or SOB, denies edema, and says she is comfortable, but can feel her heartbeat and it feels fast. Exam: Sitting upright, NAD, fluid speech. No respiratory distress. Abdomen soft, postgravid, TIFFANIE in place working normally. SCD's to knee are in place. Ankles are with trace edema bilaterally, R perhaps a touch more than L, but able to easily palpate the tendons on dorsum of foot bilaterally. A/P: Patient has been tachycardic between 100-128 much of today. Until now every time I have communicated with nursing about this they reported that patient felt well, was ambulating, and her O2 sats were at goal of >95%. This time the patient is noting symptoms and her O2 sat has dipped just below goal. Will initiate workup for possible DVT/PE by checking EKG and LE dopplers. If necessary will also proceed to CT Chest, and patient aware of impact of IV contrast on , and willing to pump and dump for 24 hours while supplementing during that window.
[2024-04-23] MEDS: OPTIRAY 320 125ml IV ONE (00:48)
--- NOTE | 2024-04-23 04:56 | Ultrasound Report ---
Exam(s): US VENOUS BILATERAL LOWER EXTREMITIES EXAM: US Duplex Bilateral Lower Extremities Veins CLINICAL HISTORY: Reason for exam: r/o DVT. TECHNIQUE: Real-time duplex ultrasound scan of the bilateral lower extremity veins integrating B-mode two-dimensional vascular structure, Doppler spectral analysis, color flow Doppler imaging and compression. COMPARISON: No relevant prior studies available. FINDINGS: Right deep veins: Unremarkable. No DVT in the right common femoral, femoral, proximal deep femoral or popliteal veins. The veins demonstrate normal color flow, are normally compressible, with normal phasic flow and/or augmentation response. Right superficial veins: Unremarkable. No thrombus in the visualized right great saphenous vein. Left deep veins: Unremarkable. No DVT in the left common femoral, femoral, proximal deep femoral or popliteal veins. The veins demonstrate normal color flow, are normally compressible, with normal phasic flow and/or augmentation response. Left superficial veins: Unremarkable. No thrombus in the visualized left great saphenous vein. Soft tissues: No acute findings. No popliteal cyst. IMPRESSION: Normal bilateral lower extremity duplex venous ultrasound. Electronically signed by: Jose Greene MD 04/23/24 04:05 AM
--- NOTE | 2024-04-23 04:56 | CT Scan Report ---
Exam(s): CTA CHEST IV Amt: 118 ml optiray 320 EXAM: CT Angiography Chest With Intravenous Contrast CLINICAL HISTORY: Reason for exam: r/o PE: tachy, palpitat's, 94% on RA, . TECHNIQUE: Axial computed tomographic angiography images of the chest with intravenous contrast. CTDI is 40 mGy and DLP is 826.06 mGy-cm. Automated exposure control was utilized for the study. A dose lowering technique was utilized adhering to the principles of ALARA. MIP reconstructed images were created and reviewed. COMPARISON: No relevant prior studies available. FINDINGS: Pulmonary arteries: Unremarkable. No pulmonary embolism. Aorta: Thoracic aorta is unremarkable. No thoracic aortic aneurysm. Lungs: See below. Pleural space: Small bilateral pleural effusions with compressive atelectasis of both lower lobes. No pneumothorax. Heart: Cardiomegaly. No significant pericardial effusion. No evidence of RV dysfunction. Bones/joints: No acute fracture. No dislocation. Soft tissues: Unremarkable. Lymph nodes: Unremarkable. No enlarged lymph nodes. IMPRESSION: No acute findings in the visualized arteries of the chest. Electronically signed by: Jose Greene MD 04/23/24 04:15 AM
[2024-04-23 06:27] LABS: Hematocrit (blood only) 25.1 % (37.0-47.0)
--- NOTE | 2024-04-23 07:27 | Obstetrical Progress Note ---
Date of Service April 23, 2024 Subjective Ambulation: ambulating normally Voiding: no voiding problems Passing Gas:: Yes Diet Tolerance:: regular diet Lochia:: Small Feeding Type:: breast feeding Patient in bathroom with preparing to shower at the time of my visit today. Physical Exam Patient in bathroom preparing to shower; exam limited to being able to see she was standing in that room as assisted her and door opened to discuss. Results & Data Vital Signs (Past 12 Hours) Vital Signs Temp Pulse Resp BP Pulse Ox O2 Del Method 04/23/24 03:23 97.9 F 109 H 16 129/84 96 Room Air 04/22/24 21:39 99.1 F 128 H 16 127/78 94 Room Air
--- NOTE | 2024-04-23 10:00 | Electrocardiogram Report ---
Test Reason : Blood Pressure : */* mmHG Vent. Rate : 130 BPM Atrial Rate : 130 BPM P-R Int : 132 ms QRS Dur : 72 ms QT Int : 286 ms P-R-T Axes : 47 42 18 degrees QTcB Int : 420 ms Sinus tachycardia Otherwise normal ECG No previous ECGs available Confirmed by Zhang Barakat ([id number]) on 04/23/2024 10:00:22 AM Referred By: Adore Hickman Confirmed By: Zhang Barakat
[2024-04-23 10:33] VITALS: BP 135/85; PULSE 111; RESP 18; TEMP 97.5; O2SAT 97
[2024-04-23] MEDS ORDERED: ACETAMINOPHEN 325 MG TAB PO PRN (12:11)
[2024-04-23] MEDS ORDERED: bisacodyL 10 MG SUPP PR PRN (12:11)
[2024-04-23] MEDS ORDERED: IBUPROFEN 600 MG TAB PO PRN (12:11)
--- NOTE | 2024-04-26 11:44 | Discharge Summary ---
Date of Service April 26, 2024 Admission HPI Per Admitting Provider 23 yo G1 at 39 4/7 wga presents for iol fdue to BMI. 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 denies hx stis Admission Exam (Per Admitting) Constitutional WD/WN, vitals as above Eyes PERRL, conjunctivae normal, anicteric sclerae Neck normal visual inspection Respiratory normal respiratory effort and able to speak in complete sentences; no respiratory distress and no labored breathing Cardiovascular Rate/Rhythm: regular rate and regular rhythm Extremities: no edema Chest (Breasts) Chest: normal inspection of chest Gastrointestinal (Abdomen) Inspection/Auscultation: abdomen normal to inspection Psychiatric A+Ox3, euthymic affect Genitourinary OB Exam Abdomen: + fundal height Discharge Data Consultations 04/20/24 08:51 Consult Anesthesiology Stat Procedures Performed Operation Date: 04/21/24 09:10 Actual Procedures p Section in LD for living male child at 1144(Bilateral) - Lucius Hollis MD, [facility] Course (1) Encounter for assessment: Plan Pt is a 23 y/o female who is now PPD#1 following LTCS at 39 weeks PPD 1: stable, routine management -Patient is voiding and ambulating on their own power -Pain is well controlled on as needed analgesia -Tolerating regular diet without nausea or vomiting c/o generalized itching that started lastnight but denies any SoB, lip or tongue swelling or wheeze -Planned to Breast feed * continue antihistamines for itching. * encouraged to ambulate and hydrate well. * Reassess d/c readiness tomorrow * 6 weeks OB outpatient follow-up Coding Level of Care Code None Diagnoses Encounter for care or examination of mother immediately after delivery Z39.0 visit type: exam and care immediately after delivery
== END 2024-04-23 13:45 | disposition home or self-care (01) | DRG 788 ==
LOC: 4S1 07:46 → 4E2 04-21 18:48